=== PATIENT | male | born 1995 | race African-American/Black ===

== ENCOUNTER → 2018-08-04 14:40 | Emergency (ER) | payer SELFPAY ==
[~2018-08-04 14:40] MED LIST: Ketorolac INJ* 30 MG/ML 1 ML VIAL IM ONE; Magnesium Oxide TAB* 400 MG PO ONE
--- NOTE | 2018-08-04 15:24 | ED ---
HPI Chest Pain - HPI Summary HPI Summary: A 23 y/o male presents to [facility] with a chief complaint of chest pain since 07/28. He reports that it feels like someone is gripping his heart and says that it is sharp. He rates his pain as a 4/10 in severity. He claims that his pain never leaves but fluctuates in severity. He denies any N/V, dizziness, SOB or palpitations. He denies a Hx of HTN, HLD and DM. He denies a FHx of cardiac disease. He reports daily EtOH use, but denies smoking and drug use. He denies taking any medications or any SHx. - History of Current Complaint Chief Complaint: EDChestPainROMI Time Seen by Provider: 08/04/18 15:16 Hx Obtained From: Patient Onset/Duration: Started Days Ago, Still Present Timing: Constant, Lasting Days Initial Severity: Moderate Current Severity: Moderate Pain Intensity: 4 Pain Scale Used: 0-10 Numeric Chest Pain Location: Diffuse Chest Pain Radiates: No Character: Sharp/Stabbing Aggravating Factor(s): Nothing Alleviating Factor(s): Nothing Associated Signs and Symptoms: Negative: Dizziness, Shortness of Breath, Nausea , Palpitations, Vomiting - Allergy/Home Medications Allergies/Adverse Reactions: Allergies Allergy/AdvReac Type Severity Reaction Status Date / Time No Known Allergies Allergy Verified 08/04/18 15:03 PMH/Surg Hx/FS Hx/Imm Hx Endocrine/Hematology History: Denies: Hx Diabetes Cardiovascular History: Denies: Hx Hypercholesterolemia, Hx Hypertension Infectious Disease History: No Infectious Disease History: Denies: Traveled Outside the [place] in Last 30 Days - Family History Known Family History: Negative: Cardiac Disease - Social History Alcohol Use: Daily Substance Use Type: Reports: None Smoking Status (MU): Never Smoked Tobacco Review of Systems Positive: Chest Pain. Negative: Palpitations Negative: Shortness Of Breath Negative: Vomiting, Nausea Neurological: Negative - dizziness All Other Systems Reviewed And Are Negative: Yes Physical Exam - Summary Physical Exam Summary: VITAL SIGNS: Reviewed. GENERAL: Patient is a well-developed and nourished MALE who is lying comfortable in the stretcher. Patient is not in any acute respiratory distress. HEAD AND FACE: No signs of trauma. No ecchymosis, hematomas or skull depressions. No sinus tenderness. EYES: PERRLA, EOMI x 2, No injected conjunctiva, no nystagmus. EARS: Hearing grossly intact. Ear canals and tympanic membranes are within normal limits. MOUTH: Oropharynx within normal limits. NECK: Supple, trachea is midline, no adenopathy, no JVD, no carotid bruit, no c- spine tenderness, neck with full ROM. CHEST: Symmetric, Reproducible chest pain. LUNGS: Clear to auscultation bilaterally. No wheezing or crackles. CVS: Regular rate and rhythm, S1 and S2 present, no murmurs or gallops appreciated. ABDOMEN: Soft, non-tender. No signs of distention. No rebound no guarding, and no masses palpated. Bowel sounds are normal. EXTREMITIES: FROM in all major joints, no edema, no cyanosis or clubbing. NEURO: Alert and oriented x 3. No acute neurological deficits. Speech is normal and follows commands. SKIN: Dry and warm Triage Information Reviewed: Yes Vital Signs On Initial Exam: Initial Vitals Temp Pulse Resp BP Pulse Ox 99.7 F 91 16 153/101 98 08/04/18 15:02 08/04/18 15:02 08/04/18 15:02 08/04/18 15:02 08/04/18 15:02 Vital Signs Reviewed: Yes Diagnostics - Vital Signs Vital Signs Temp Pulse Resp BP Pulse Ox 08/04/18 15:02 99.7 F 91 16 153/101 98 - Laboratory Result Diagrams: 08/04/18 16:33 08/04/18 16:33 Lab Statement: Any lab studies that have been ordered have been reviewed, and results considered in the medical decision making process. - Radiology CXR Radiology Interpretation Completed By: Radiologist Summary of Radiographic Findings: NO ACTIVE CARDIOPULMONARY DISEASE IS NOTED. ED physician has reviewed this imaging report. - EKG 15:28 Cardiac Rate: NL - 84 bpm EKG Rhythm: Sinus Rhythm ST Segment: Normal Summary of EKG Findings: NSR at 84 bpm, no ST elevations, normal axis Re-Evaluation - Re-Evaluation First Eval Re-Evaluation Time: 17:09 Change: Improved Comment: Discussed results and plan for discharge. Chest Pain Course/Dx - Course Assessment/Plan: The patient is a 23-year-old male who presents to the emergency department with chief complaint of chest pain. Test results without any significant abnormality. Troponin is 0.00. The patient doesnt have any comorbidities and the heart score is equal to 0. In the ED course the patient was given Toradol for the pain. Also the patient was given magnesium for a slight decrease in the magnesium. At this point I discussed all the findings and test results with the patient and the need to follow-up primary care physician. Patient is hemodynamically stable alert oriented 3. I discussed all the findings and test results with the patient. Patient was instructed to return to the emergency room immediately if any of the symptoms return worsens. Plan of care was discussed with the patient and understands and agrees. All questions were answered at patient satisfaction. There were no further complaints or concerns. Lung exam before discharge: CTA B/L. Good air exchange. No wheezing or crackles heard. CVS: S1 and S2 present. No murmurs appreciated. Patient is alert and oriented x 3. Patient is hemodynamically stable. Patient will be discharged home with follow up PCP in the next 2-3 days - Chest Pain Differential Diagnosis/HQI/PQRI: Acute [place], ACS, Angina, CHF, Chest Wall, GI Disease, Lower Respiratory Infection - Diagnoses Provider Diagnoses: Chest pain, atypical Discharge - Sign-Out/Discharge Documenting (check all that apply): Patient Departure - DC Patient Received Moderate/Deep Sedation with Procedure: No - Discharge Plan Condition: Stable Disposition: HOME Patient Education Materials: Chest Pain (DC) Referrals: Gavin Nelson MD [Primary Care Provider] - 3 Days Additional Instructions: FOLLOW UP WITH YOUR PRIMARY CARE PROVIDER WITHIN ONE WEEK RETURN TO THE ED FOR ANY WORSENING OR NEW SYMPTOMS. - Billing Disposition and Condition Condition: STABLE Disposition: Home - Attestation Statements Document Initiated by Jw: Yes Documenting Scribe: Mau Salazar Provider For Whom Jw is Documenting (Include Credential): Spencer Davies MD Scribe Attestation: Mau [place], scribed for Spencer Davies MD on 08/04/18 at 1828. Scribe Documentation Reviewed: Yes Provider Attestation: The documentation as recorded by the Mau tamayo accurately reflects the service I personally performed and the decisions made by me, Spencer Davies MD Status of Scribe Document: Viewed
[2018-08-04 16:41] LABS: ABS Basophils 0.1 10^3/ul (0-0.2); ABS Eosinophils 0.1 10^3/ul (0-0.6); ABS Lymphocytes 1.5 10^3/ul (1.0-4.8); ABS Monocytes 0.4 10^3/ul (0-0.8); ABS Neutrophils 2.2 10^3/ul (1.5-7.7); ABS Nucleated RBC 0 10^3/ul; Eosinophil % 1.5 %; Hematocrit 45 % (36-46); Lymphocyte % 35.8 %; Mean Corpuscular HGB Conc 34 g/dL (31-36); Mean Corpuscular Hemoglobin 30 pg (27-31); Mean Corpuscular Volume 90 fL (80-94); Mean Platelet Volume 8.8 fL (7.4-10.4); Nucleated Red Blood Cells % 0.1; Platelet Count 248 10^3/uL (150-450); Red Blood Count 5.01 10^6 /uL (4.18-5.48); Red Cell Distribution Width 14 % (10.5-15); White Blood Count 4.3 10^3/uL (3.5-10.8)
[2018-08-04 16:58] LABS: Albumin 4.7 g/dL (3.2-5.2); Albumin/Globulin Ratio 1.7 (1-3); BUN/Creatinine Ratio 15.5 (8-20); EGFR African American 106.5 (>60); Globulin 2.7 g/dL (2-4); Magnesium 1.8 mg/dL (1.9-2.7); Potassium 4.2 mmol/L (3.5-5.0); Total Bilirubin 0.7 mg/dL (0.2-1.0); Total Protein 7.4 g/dL (6.4-8.9)
[2018-08-04 17:02] LABS: CKMB ng/mL 1.8 ng/mL (0.6-6.3)
[2018-08-04 17:17] LABS: TSH (Thyroid Stimulating Horm) 0.78 mcIU/mL (0.34-5.60)
[2018-08-04 17:20] VITALS: BP 121/93
== END | disposition home or self-care (01) ==
LOC: ED 14:40
DX: R07.89 Other chest pain (principal)
CPT/HCPCS: 36415; 71045; 80053; 82550; 82553; 83605; 83735; 84443; 84484; 85025; 93005; 96374; 99283; J1885

== ENCOUNTER 2019-06-29 12:11 | Emergency (ER) | payer SELFPAY ==
[2019-06-29 15:17] LABS: Urine Appearance Clear; Urine Bilirubin Negative (Negative); Urine Blood Negative (Negative); Urine Color Straw; Urine Glucose Negative (Negative); Urine Ketones Negative (Negative); Urine Nitrite Negative (Negative); Urine Protein Negative (Negative); Urine Specific Gravity 1.006 (1.010-1.030); Urine Urobilinogen Negative (Negative)
[2019-06-29 15:22] LABS: Hematocrit 44 % (42-52); Hemoglobin 15.2 g/dL (14.0-18.0); Mean Corpuscular HGB Conc 34 g/dL (31-36); Mean Corpuscular Hemoglobin 31 pg (27-31); Mean Corpuscular Volume 91 fL (80-94); Mean Platelet Volume 7.9 fL (7.4-10.4); Platelet Count 262 10^3/uL (150-450); Red Blood Count 4.87 10^6 /uL (4.18-5.48); Red Cell Distribution Width 14 % (10-15); White Blood Count 4.9 10^3/uL (3.5-10.8)
[2019-06-29 15:42] LABS: Albumin 5.1 g/dL (3.2-5.2); BUN/Creatinine Ratio 9.6 (8-20); Calcium 9.9 mg/dL (8.6-10.3); EGFR African American 118.3 (>60); EGFR Non-African American 97.8 (>60); Globulin 2.6 g/dL (2-4); Potassium 3.9 mmol/L (3.5-5.0); Total Protein 7.7 g/dL (6.4-8.9)
[2019-06-29] MEDS ORDERED: Lidocaine 1% MPF ** 5 ML VIAL IM ONE (16:11)
[2019-06-29] MEDS ORDERED: cefTRIAXone VIAL(*) 500 MG VIAL IM ONE (16:11)
[2019-06-29] MEDS ORDERED: Azithromycin TAB* 250 MG PO ONE (16:11)
--- NOTE | 2019-06-29 16:20 | ED ---
GI/ HPI - HPI Summary HPI Summary: Patient is a 23 y/o M presenting to [facility] with a chief complaint of suprapubic pressure onset over the last week with worsening since 06/27/2019. He reports that he has been experiencing lower abdominal pressure that began worsening a few days ago as it is aggravated with sitting down, causing pain to radiate into the upper abdomen and chest and occasionally the arms. The pain was intermittent prior yesterday but had not been present until then. He endorses penile pain last night with normal bowels, no testicular pain, or no penile drainage. He denies any fevers, chills, erythema of eyes, sore throat, SOB, cough, N/V, dysuria, hematuria, myalgia, edema, rash, or dizziness. Symptoms currently rated 2/10 in severity. Pain somewhat alleviated with standing up. Past medical history significant prostate issues of unknown etiology. Nonsmoker , weekly alcohol use, no substance use. Medications reviewed. Allergies noted. - History of Current Complaint Chief Complaint: EDUrogenitalProblems Time Seen by Provider: 06/29/19 14:29 Stated Complaint: URINARY TROUBLE PER PT Hx Obtained From: Patient Onset/Duration: Started Days Ago, Still Present Timing: Intermittent Severity: Mild Current Severity: Moderate Pain Intensity: 2 Location of Pain: Suprapubic Additional Locations for Males: Penis Pain Characteristics: Sharp Pain Radiates to: Chest Associated Signs and Symptoms: Positive: Abdominal Pain, Chest Pain. Negative: Dizziness, Nausea, Vomiting, Fever, Hematuria, Dysuria, Chills, Cough, Other: - erythema of eyes, SOB, myalgia, edema, rash Additional Signs & Symptoms: Negative: Penile Discharge Aggravating Factor(s): Sitting Alleviating Factor(s): Position - supine - Allergy/Home Medications Allergies/Adverse Reactions: Allergies Allergy/AdvReac Type Severity Reaction Status Date / Time No Known Allergies Allergy Verified 06/29/19 12:13 Home Medications: Home Medications NK [No Home Medications Reported] 01/24/13 [History Confirmed 06/29/19] PMH/Surg Hx/FS Hx/Imm Hx Endocrine/Hematology History: Denies: Hx Diabetes Cardiovascular History: Denies: Hx Hypercholesterolemia, Hx Hypertension History: Reports: Other Problems/Disorders - prostate issues with unknown cause - Surgical History Surgical History: None Surgery Procedure, Year, and Place: none Infectious Disease History: No Infectious Disease History: Denies: Traveled Outside the [place] in Last 30 Days - Family History Known Family History: Negative: Cardiac Disease - Social History Alcohol Use: Weekly Hx Substance Use: No Substance Use Type: Reports: Excessive Caffeine Hx Tobacco Use: No Smoking Status (MU): Never Smoked Tobacco Review of Systems Negative: Fever, Chills Negative: Erythema Negative: Sore Throat Positive: Chest Pain Negative: Shortness Of Breath, Cough Positive: Abdominal Pain - suprapubic. Negative: Vomiting, Nausea Positive: other - penile pain; Negative: testicular pain. Negative: dysuria, discharge, hematuria Negative: Myalgia, Edema Negative: Rash Neurological/Mental Status: Other - Negative: dizziness All Other Systems Reviewed And Are Negative: Yes Physical Exam - Summary Physical Exam Summary: Constitutional: Well-developed, Well-nourished, Alert. (-) Distressed Skin: Warm, Dry HENT: Normocephalic; Atraumatic Eyes: Conjunctiva normal Neck: Musculoskeletal ROM normal neck. (-) JVD, (-) Stridor, (-) Tracheal deviation Cardio: Rhythm regular, rate normal, Heart sounds normal; Intact distal pulses; The pedal pulses are 2+ and symmetric. Radial pulses are 2+ and symmetric. (-) Murmur Pulmonary/Chest wall: Effort normal. (-) Respiratory distress, (-) Wheezes, (-) Rales Abd: Soft, (-) tenderness, (-) Distension, (-) Guarding, (-) Rebound Musculoskeletal: (-) Edema Lymph: (-) Cervical adenopathy Neuro: Alert, Oriented x3 Psych: Mood and affect Normal : Neil (male parts counter representative) in attendance, Normal prostate, Not boggy, Normal testes, Normal penis, Mild urethral tenderness, No discharge, No palpable inguinal hernias, Patient in standing position Triage Information Reviewed: Yes Vital Signs On Initial Exam: Initial Vitals Temp Pulse Resp BP Pulse Ox 98.8 F 82 16 157/102 99 06/29/19 12:13 06/29/19 12:13 06/29/19 12:13 06/29/19 12:13 06/29/19 12:13 Vital Signs Reviewed: Yes Procedures - Sedation Patient Received Moderate/Deep Sedation with Procedure: No Diagnostics - Vital Signs Vital Signs Temp Pulse Resp BP Pulse Ox 06/29/19 14:54 85 99 06/29/19 14:53 77 139/89 100 06/29/19 14:09 99.1 F 68 16 137/95 99 06/29/19 12:13 98.8 F 82 16 157/102 99 - Laboratory Lab Results: Lab Results 06/29/19 06/29/19 06/29/19 Range/Units 12:59 15:13 15:13 WBC 4.9 (3.5-10.8) 10^3/uL RBC 4.87 (4.18-5.48) 10^6 /uL Hgb 15.2 (14.0-18.0) g/dL Hct 44 (42-52) % MCV 91 (80-94) fL MCH 31 (27-31) pg MCHC 34 (31-36) g/dL RDW 14 (10-15) % Plt Count 262 (150-450) 10^3/uL MPV 7.9 (7.4-10.4) fL Sodium 136 (135-145) mmol/L Potassium 3.9 (3.5-5.0) mmol/L Chloride 101 (101-111) mmol/L Carbon Dioxide 28 (22-32) mmol/L Anion Gap 7 (2-11) mmol/L BUN 9 (6-24) mg/dL Creatinine 0.94 (0.67-1.17) mg/dL Est GFR ( Amer) 118.3 (>60) Est GFR (Non-Af Amer) 97.8 (>60) BUN/Creatinine Ratio 9.6 (8-20) Glucose 87 (70-100) mg/dL Calcium 9.9 (8.6-10.3) mg/dL Total Bilirubin 1.00 (0.2-1.0) mg/dL AST 29 (13-39) U/L ALT 32 (7-52) U/L Alkaline Phosphatase 33 L (34-104) U/L Total Protein 7.7 (6.4-8.9) g/dL Albumin 5.1 (3.2-5.2) g/dL Globulin 2.6 (2-4) g/dL Albumin/Globulin Ratio 2.0 (1-3) Urine Color Straw Urine Appearance Clear Urine pH 7.0 (5-9) Ur Specific [place] 1.006 L (1.010-1.030) Urine Protein Negative (Negative) Urine Ketones Negative (Negative) Urine Blood Negative (Negative) Urine Nitrate Negative (Negative) Urine Bilirubin Negative (Negative) Urine Urobilinogen Negative (Negative) Ur Leukocyte Esterase Negative (Negative) Urine Glucose Negative (Negative) Result Diagrams: 06/29/19 15:13 06/29/19 15:13 Lab Statement: Any lab studies that have been ordered have been reviewed, and results considered in the medical decision making process. - EKG 1413 Cardiac Rate: NL - 71 BPM EKG Rhythm: Sinus Rhythm Summary of EKG Findings: An EKG at 1413 reveals normal sinus rhythm at 71 BPM. No STEMI. ED physician has reviewed and interpreted this EKG. Re-Evaluation - Re-Evaluation First Eval Re-Evaluation Time: 16:20 Comment: Results and d/c plan discussed GIGU Course/Dx - Course Course Of Treatment: Patient is a 23 y/o M presenting with suprapubic pain onset a week ago with worsening in sitting position as pain radiates into the chest, new penile pain onset last night. No changes in bowels, testicular pain, or penile discharge. Past medical history significant for prostate issues of unknown etiology. Physical exam is negative. exam, while patient is in standing position, shows patient to have a normal prostate, not body, normal tests, normal penis, reported mild urethral tenderness, no discharge, no palpable inguinal hernias. Patient received Lidocaine, Rocephin, and Azithromycin. Blood work reveals alkaline phosphatase of 33 but is otherwise negative. UA is negative for infection. Pending GC/Chlamydia. An EKG at 1413 reveals normal sinus rhythm at 71 BPM, no STEMI. The EKG is negative, and the chest pain is non-anginal and appears to be positional. Patient has prior history of prostatitis, but there is no indication for current prostatitis. We will treat empirically. All results discussed with patient. Patient safe for discharge. He is advised to follow up with his PCP. Return precautions given. Patient agreeable with plan. - Diagnoses Provider Diagnoses: Chest pain, unspecified, Urethritis Discharge ED - Sign-Out/Discharge Documenting (check all that apply): Patient Departure - Patient will be discharged home. - Discharge Plan Condition: Stable Disposition: HOME Patient Education Materials: Nonspecific Urethritis in Men (ED), Noncardiac Chest Pain (ED) Referrals: [facility] [Outside] - 3 Days Additional Instructions: Follow up with your primary care provider in 2-3 days. Return to the emergency department for any new or worsening symptoms. - Attestation Statements Document Initiated by Scribe: Yes Documenting Scribe: Maren Pimentel Provider For Whom Rosasibdennis is Documenting (Include Credential): Dr. Raymond Damon MD Scribe Attestation: IMaren, scribed for Dr. Raymond Damon MD on 06/29/19 at 1647. Status of Scribe Document: Ready
[2019-06-29 16:46] VITALS: BP 132/100
[2019-06-30 13:18] LABS: Chlamydia trachomatis NAA Negative (Negative); Neisseria gonorrhoeae (GC) NAA Negative (Negative)
== END 2019-06-29 16:44 | disposition home or self-care (01) ==
LOC: ED 12:11
DX: R07.89 Other chest pain (principal); N34.2 Other urethritis
CPT/HCPCS: 36415; 80053; 81003; 85027; 87491; 87591; 93005; 96372; 99282; A9270-GY; J0696